=== PATIENT | female | born 2000 | race Caucasian/White ===

== ENCOUNTER 2021-02-26 19:41 | Emergency (ER) | payer OTHER, SELFPAY ==
[2021-02-26 19:51] VITALS: BP 145/74; PULSE 71; RESP 16; TEMP 36.9; O2SAT 100
--- NOTE | 2021-02-26 19:53 | ED.GENADULT ---
HPI - General Adult General Chief complaint: Back Pain/Injury Stated complaint: back pain Source: patient Mode of arrival: ambulatory Limitations: no limitations History of Present Illness HPI narrative: Patient is a 20-year-old female presents to the [facility] via POV for evaluation of chronic back pain. She states her pain worsened over the past 24 hours. She reports pain is in her left low back. Pain is constant and sharp in nature. Ibuprofen improves pain and movement worsens pain. Related Data Allergies Allergy/AdvReac Type Severity Reaction Status Date / Time No Known Allergies Allergy Verified 02/26/21 19:53 Review of Systems Review of Systems: Denies fever, chills, sweats, change in appetite, poor p.o. intake, dizziness, paresthesias, urinary symptoms, urinary incontinence, difficulty with ambulation/gait, abdominal pain, nausea, vomiting, diarrhea PMFSH Past Medical History Medical History (Updated 02/26/21 @ 20:01 by Eduar Navas, [employer], ) Chronic back pain Comments I have reviewed and agree with the patient's past medical, surgical, social, and family hx as documented by the RN. There is no relevant family history pertinent to the presenting complaint. Exam Narrative: GENERAL: Well-appearing, well-nourished, and in no acute distress. HEAD: Normocephalic, atraumatic. NECK: Supple. No lymphadenopathy or nuchal rigidity. No evidence of pain, decreased ROM, or deformity. CHEST: Lung sounds are clear to auscultation in bilateral lung carr. No respiratory distress. HEART: Regular rate and rhythm. No murmur heard. Normal peripheral pulses. ABDOMEN: Soft, nontender, nondistended, normal active bowel sounds in all quadrants. No guarding. No rebound tenderness. No pulsatile or palpable abdominal mass(es). No CVAT EXTREMITIES: Normal range of motion. No edema. BACK: Full ROM. Mild left-sided low back pain with flexion and extension. No evidence of deformity, spasm, mass, spinal tenderness, or swelling. Bilateral SLR tests negative. Normal gait. SKIN: Warm, dry, no rash. No skin color changes. Excellent turgor. NEURO: No focal deficits. Alert and oriented x3. Course Vital Signs Vital signs: Vital Signs Temperature 98.4 F 02/26/21 19:51 Pulse Rate 71 02/26/21 19:51 Respiratory Rate 16 02/26/21 19:51 Blood Pressure 145/74 H 02/26/21 19:51 Pulse Oximetry 100 02/26/21 19:51 Temperature 98.4 F 02/26/21 19:51 Pulse Rate 71 02/26/21 19:51 Respiratory Rate 16 02/26/21 19:51 Blood Pressure 145/74 H 02/26/21 19:51 Pulse Oximetry 100 02/26/21 19:51 Due to an elevated blood pressure, I had a detailed discussion with the patient and/or guardian regarding the need for follow-up with their primary care provider within the next 3-4 days. Patient verbalized understanding and agreed. Medical Decision Making Differential Diagnosis Differential Diagnosis: Spinal stenosis, radiculopathy/sciatica,cauda equina syndrome, sacroiliac pathology, fracture, strain Medical Records Medical records reviewed: Yes I reviewed the external patient's medical records. Vital Signs Vital Signs: Vital Signs Temperature 98.4 F 02/26/21 19:51 Pulse Rate 71 02/26/21 19:51 Respiratory Rate 16 02/26/21 19:51 Blood Pressure 145/74 H 02/26/21 19:51 Pulse Oximetry 100 02/26/21 19:51 Temperature 98.4 F 02/26/21 19:51 Pulse Rate 71 02/26/21 19:51 Respiratory Rate 16 02/26/21 19:51 Blood Pressure 145/74 H 02/26/21 19:51 Pulse Oximetry 100 02/26/21 19:51 Reviewed Critical Care Time Critical Care Time Critical Care Time: No Discharge Plan Discharge Clinical Impression: Chronic back pain Patient Disposition: Home, Self-Care Condition: Stable Instructions: Back Pain (ED) Additional Instructions: --See discharge instruction for detailed information. --You may take [id number] Tylenol/Ibuprofen for pain, fever, and swelling control. Take only as d
== END 2021-02-26 20:03 | disposition home or self-care (01) ==
PROVIDERS: Emergency Provider Nurse Practitioner Family
DX: G89.29 Other chronic pain (principal); M54.5 Low back pain
CPT/HCPCS: 99213; G0463

== ENCOUNTER 2021-03-11 18:55 | Emergency (ER) | payer OTHER, SELFPAY ==
--- NOTE | ~2021-03-11 | XR_ITS ---
XR ankle RT min 3V 03/11/2021 19:08 INDICATION: Right ankle pain PROCEDURE: 4 views right ankle COMPARISON: No prior studies for comparison. FINDINGS: Fracture, dislocation or subluxation is not identified. Ankle mortise intact. There is mode rate diffuse soft tissue swelling. No foreign bodies are identified. IMPRESSION: 1: No acute fracture. 2: Moderate soft tissue swelling. Reviewed, dictated and finalized at location A.
[2021-03-11 18:58] VITALS: BP 137/78; PULSE 87; RESP 16; TEMP 36.6; O2SAT 99
--- NOTE | 2021-03-11 19:16 | ED.LOWEXIN ---
HPI - Extremity Injury (Lower) General Chief Complaint: Extremity Injury, Lower Stated Complaint: INJURED R ANKLE Source: patient and RN notes reviewed Limitations: no limitations History of Present Illness HPI Narrative: The patient, previously mostly healthy, presents with right ankle pain that is mild, worse with motion, better at rest, located laterally. It began after she slipped and fell last night, Friday; no bleeding, deformity-yet there is mild lateral swelling. Related Data Allergies Allergy/AdvReac Type Severity Reaction Status Date / Time No Known Allergies Allergy Verified 02/26/21 19:53 Review of Systems Review of Systems: General/Constitutional: No weight loss,fever Eyes: N0: Redness,discharge Ears/Nose/Throat: No: Epistaxis,ear discharge Respiratory: Denies: Hemoptysis Gastrointestinal: No Vomiting, Bleeding-rectal Skin: No Lumps, eruption Neurologic: No Focal Weakness,Sz Hematologic: Denies: Petechiae/Purpura Psychiatric: No: Suicida ideationl All Other Systems: Reviewed and Negative [facility] Past Medical History Medical History (Updated 03/11/21 @ 19:24 by Alexandro Srinivasan MD) Chronic back pain Comments At time of signature, agree with nursing past medical, surgical, social and family history. There is no relevant family history pertinent to the presenting complaint Exam Narrative: General Appearance: Well appearing, Conjunctiva clear Mouth/Throat: Normal appearing, Normal lips,: Supple Respiratory: Airway patent, No respiratory distress MS-ankle: Nl strength (mostly intact, limited flexion/extension by pain), Tenderness ( laterally, with mild decreased ROM), Swelling (laterally), Other (no anterior drawer, no collateral laxity, no Achilles tenderness, no fifth MT tenderness) Skin: Warm, Dry, Normal color Neurological: Normal affect Course Vital Signs Vital signs: Vital Signs Temperature 97.9 F 03/11/21 18:58 Pulse Rate 87 03/11/21 18:58 Respiratory Rate 16 03/11/21 18:58 Blood Pressure 137/78 03/11/21 18:58 Pulse Oximetry 99 03/11/21 18:58 Temperature 97.9 F 03/11/21 18:58 Pulse Rate 87 03/11/21 18:58 Respiratory Rate 16 03/11/21 18:58 Blood Pressure 137/78 03/11/21 18:58 Pulse Oximetry 99 03/11/21 18:58 Discharge Plan Discharge Clinical Impression: Ankle sprain Qualifiers: Encounter type: initial encounter Involved ligament of ankle: unspecified ligament Laterality: right Qualified Code(s): S93.401A - Sprain of unspecified ligament of right ankle, initial encounter Patient Disposition: Home, Self-Care Condition: Stable Instructions: Ankle Sprain (ED) Prescriptions: New tramadol 50 mg tablet 50 - 75 mg PO BID PRN (Reason: pain) Qty: 20 RF: 0 tramadol 50 mg tablet 50 - 75 mg PO BID PRN (Reason: pain) Qty: 21 RF: 0 Follow-up/Referrals: PHYSICIAN NOT ON STAFF,NONSTAFF [Primary Care Provider] -
== END 2021-03-11 19:29 | disposition home or self-care (01) ==
PROVIDERS: Emergency Provider Emergency Medicine
DX: S93.401A Sprain of unspecified ligament of right ankle, initial encounter (principal); W01.0XXA Fall on same level from slipping, tripping and stumbling without subsequent striking against object, initial encounter
CPT/HCPCS: 73610; 99213; G0463

== ENCOUNTER 2022-05-12 02:48 | Emergency (ER) | payer OTHER, SELFPAY ==
[2022-05-12 02:49] VITALS: BP 124/70; PULSE 72; RESP 16; TEMP 36.8; O2SAT 100
--- NOTE | 2022-05-12 04:01 | ED.GENADULT ---
HPI - General Adult General Chief complaint: Wound/Laceration Stated complaint: laceration to LLE Time Seen by Provider: 05/12/22 02:58 History of Present Illness HPI narrative: 21-year-old female presenting to the emergency department for evaluation of a laceration to her left lower leg. Patient states she was walking and slipped on the ice and her foot slipped under her car and she cut her leg on the bottom of her car. Patient reports that her tetanus is up-to-date. Related Data Home Medications Medication Instructions Recorded Confirmed No Home Medications 05/12/22 05/12/22 Allergies Allergy/AdvReac Type Severity Reaction Status Date / Time No Known Allergies Allergy Verified 05/12/22 02:56 Review of Systems Review of Systems: CONSTITUTIONAL: Denies fever, chills, or sweats. EYES: Denies visual changes, redness, or discharge. ENT: Denies rhinorrhea, congestion, sore throat, or otalgia. CARDIOVASCULAR: Denies chest pain, palpitations, or edema. RESPIRATORY: Denies cough or dyspnea. GASTROINTESTINAL: Denies abdominal pain, nausea, vomiting, or diarrhea. GENITOURINARY: Denies dysuria or hematuria. SKIN: Lower leg laceration, see HPI MUSCULOSKELETAL: Denies back pain, joint pain, or myalgia. NEUROLOGIC: Denies headache, numbness, or weakness. [facility] Past Medical History Medical History (Updated 05/13/22 @ 00:01 by Background Daemon) Chronic back pain Exam Narrative: APPEARANCE: Well appearing, no pain, no distress, well-nourished. HEAD: normocephalic, atraumatic. EYES: PERRLA/EOMI, conjunctivae clear. NOSE: Normal no drainage NECK: Supple. No adenopathy, no masses. RESPIRATORY: Airway patent, respirations nonlabored. Clear to auscultation bilaterally, no rales, rhonchi, wheezing. CARDIOVASCULAR: Regular rate and rhythm without murmurs rubs or gallops. ABDOMINAL: Soft, nontender, nondistended, normal bowel sounds MUSCULOSKELETAL: Moves all extremities. Strength/ROM intact, No edema, No calf tenderness. NEURO: Alert. Cranial nerves II through XII intact. SKIN: Laceration to left lower extremity PSYCHIATRIC: Normal affect/mood. Course Course Emergency Course: Laceration was repaired as described. Patient tolerated procedure well. All question concerns were addressed. Patient was well-appearing at time of discharge. Vital Signs Vital signs: Vital Signs Temperature 98.2 F 05/12/22 02:49 Pulse Rate 72 05/12/22 02:49 Respiratory Rate 16 05/12/22 02:49 Blood Pressure 124/70 05/12/22 02:49 Pulse Oximetry 100 05/12/22 02:49 Oxygen Delivery Room Air 05/12/22 02:49 Temperature 98.2 F 05/12/22 02:49 Pulse Rate 72 05/12/22 02:49 Respiratory Rate 16 05/12/22 02:49 Blood Pressure 124/70 05/12/22 02:49 Pulse Oximetry 100 05/12/22 02:49 Oxygen Delivery Room Air 05/12/22 02:49 Procedures Laceration Laceration 1: Site: lower extremity Side (If applicable): left Size (cm): 3 Description: linear Depth: simple, single layer Local Anesthetic: lidocaine 1% Amount of anesthesia used (mL): 5 Pre-repair: wound explored, irrigated and irrigated extensively ====== Skin Level ====== Skin layer closed with: prolene Size (cm): 4-0 Number of sutures: 4 Technique: simple, interrupted ====== Subcutaneous Layer ====== ====== Muscle Layer ====== ====== Tendon Layer ====== Dressing: Antibiotic ointment and gauze dressing Medical Decision Making Vital Signs Vital Signs: Vital Signs Temperature 98.2 F 05/12/22 02:49 Pulse Rate 72 05/12/22 02:49 Respiratory Rate 16 05/12/22 02:49 Blood Pressure 124/70 05/12/22 02:49 Pulse Oximetry 100 05/12/22 02:49 Oxygen Delivery Room Air 05/12/22 02:49 Temperature 98.2 F 05/12/22 02:49 Pulse Rate 72 05/12/22 02:49 Respiratory Rate 16 05/12/22 02:49 Blood Pressure 124/70 05/12/22 02:49 Pulse
== END 2022-05-12 04:15 | disposition home or self-care (01) ==
PROVIDERS: Emergency Provider Emergency Medicine
DX: S81.812A Laceration without foreign body, left lower leg, initial encounter (principal); W00.0XXA Fall on same level due to ice and snow, initial encounter
CPT/HCPCS: 12002; 99282